=== PATIENT | female | born 1975 | race Caucasian/White ===

== ENCOUNTER 2020-03-04 06:35 | Day surgery (SDC) | payer BC ==
[~2020-03-04] VITALS: Ht 165.1 cm; Wt 88.0 kg
[~2020-03-04 06:35] MED LIST changes: +LACTATED RINGERS 1,000 ML IV SCH; +MULT-622 PO; -MULT1TAB67 PO; -PANT40TA4 PO; +PANT40TA51 PO
[2020-03-04] MEDS ORDERED: FENTANYL CITRATE/PF 50MCG/ML 2ML VIAL ONE (10:30)
[2020-03-04] MEDS ORDERED: PROPOFOL 200MG/20ML VIAL IV ONE (10:31)
[2020-03-04] MEDS ORDERED: MIDAZOLAM HCL 2 MG/2 ML VIAL ONE (10:31)
[2020-03-04] MEDS ORDERED: ONDANSETRON HCL 4MG/2ML INJ ONE (12:15)
[2020-03-04] MEDS ORDERED: METOCLOPRAMIDE HCL 10MG/2ML VIAL ONE (12:15)
[2020-03-04] MEDS ORDERED: DEXAMETHASONE 4MG/ML 1ML VIAL ONE (12:15)
[2020-03-04] MEDS ORDERED: ONDANSETRON HCL 4MG/2ML INJ IV PRN (12:30)
[2020-03-04] MEDS ORDERED: HYDROMORPHONE HCL/PF 2MG/ML CPJ IV PRN (12:30)
== END 2020-03-04 14:30 | disposition home or self-care (01) ==
LOC: OR 06:35
PROVIDERS: ATTEND Specialist
DX: N20.2 Calculus of kidney with calculus of ureter (principal); K21.9 Gastro-esophageal reflux disease without esophagitis; M10.9 Gout, unspecified; K75.81 Nonalcoholic steatohepatitis (NASH); E66.9 Obesity, unspecified; Z72.89 Other problems related to lifestyle; Z79.899 Other long term (current) drug therapy; Z68.30 Body mass index [BMI] 30.0-30.9, adult; Z80.0 Family history of malignant neoplasm of digestive organs; Z90.722 Acquired absence of ovaries, bilateral; Z98.890 Other specified postprocedural states
CPT/HCPCS: 52356; 93005; C1769; C2617; J1100; J2250; J2405; J2704; J2765; J3010

== ENCOUNTER → 2020-03-04 | Outpatient (CLI) | payer BC ==
[~2020-03-04] MED LIST: ANAS1TAB49 PO; ASCO500C18 PO; CHOL200077 PO; MULT1TAB67 PO; PANT40TA4 PO
== END | disposition home or self-care (01) ==
LOC: LAB 06:46
PROVIDERS: ATTEND Specialist
DX: Z01.812 Encounter for preprocedural laboratory examination (principal); Z20.828 Contact with and (suspected) exposure to other viral communicable diseases
CPT/HCPCS: 87426